=== PATIENT | female | born 1985 | race Caucasian/White ===

== ENCOUNTER 2017-09-24 17:48 | Emergency (ER) | payer OTHER ==
[~2017-09-24] VITALS: Ht 177.8 cm; Wt 86.2 kg
--- NOTE | 2017-09-24 18:35 | ULTRASOUND REPORT ---
EXAMINATION: US TRIPLEX LOWER EXTREMITY, RIGHT CLINICAL INFORMATION: Right lower extremity pain. COMPARISON: None TECHNIQUE: Color-flow triplex imaging with spectral analysis and compression Doppler were performed on the lower extremity. FINDINGS: Respiratory variation, normal compression and augmented flow are noted throughout the lower extremity. The visualized common femoral vein, superficial femoral vein, profunda femoral vein, popliteal vein and midcalf peroneal and posterior tibial venous segments show no evidence of deep venous thrombosis. There is no Mcdowell's cyst. IMPRESSION: Normal triplex scan without evidence of deep venous thrombosis involving the lower extremity.
[2017-09-24 18:50] LABS: ABSOLUTE BASOPHIL COUNT 0 /CUMM (0.0-0.2); ABSOLUTE EOSINOPHIL COUNT 0.1 /CUMM (0.0-0.7); ABSOLUTE GRANULOCYTE CT 7.7 /CUMM (1.4-6.5); ABSOLUTE LYMPH COUNT 1.6 /CUMM (1.2-3.4); ABSOLUTE MONOCYTE COUNT 0.5 /CUMM (0.10-0.60); BASOPHIL % 0.3 % (0.0-2.0); EOSINOPHIL % 0.8 % (0-5); GRANULOCYTE % 77.7 % (42.2-75.2); HEMATOCRIT 32.3 % (37-47); MEAN CORPUSCULAR HGB 32.7 PG (27.0-31.0); MEAN CORPUSCULAR HGB CONC 34.2 G/DL (33.0-37.0); MEAN CORPUSCULAR VOLUME 95.7 FL (81.0-99.0); MEAN PLATELET VOLUME 7.4 FL (7.4-10.4); PLATELET COUNT 289 /CUMM (130-400); RBC DISTRIBUTION WIDTH 14.1 % (11.5-14.5); RED BLOOD CELL CT 3.38 /CUMM (4.20-5.40); WHITE BLOOD CELL COUNT 9.9 /CUMM (4.8-10.8)
[2017-09-24 18:58] LABS: PT 11.1 SEC (9.4-12.5); PTT 28 SEC (25-37)
[2017-09-24 19:55] VITALS: BP 120/72
--- NOTE | 2017-09-24 20:21 | ED GENERAL ADULT ---
History of Present Illness General Chief Complaint: General Adult Stated Complaint: R MID BACK PAIN, R CALF CRAMPING, COUGH. 20 WKS P Source: patient Exam Limitations: no limitations Vital Signs & Intake/Output Vital Signs & Intake/Output Vital Signs Date Time Temp Pulse Resp B/P B/P Pulse O2 O2 Flow FiO2 Mean Ox Delivery Rate 09/24 1954 98.6 77 17 120/72 100 Room Air 09/24 1753 98.6 102 18 155/71 99 Room Air Allergies Coded Allergies: No Known Allergies (09/24/17) Triage Note: RECEIVED 32 YO FEMALE 20 WEEKS 4 DAYS WITH TWINS. PT C/O R MID BACK PAIN RADIATING TO R LATERAL RIBCAGE AREA X 6 DAYS, CRAMPING PAIN TO RIGHT CALF AREA X 2 DAYS AND COUGHING. SPOKE TO SOFIE COUGHLIN IN CBC, PT TO BE SEEN IN THE ED Triage Nurses Notes Reviewed? yes Onset: Abrupt No Modifying Factors: none : Yes Patient currently breastfeeds: No HPI: 32-year-old female 20 weeks with twins comes into the emergency room for further evaluation of pain to her right calf. She also reports that she had some right upper back pain. Symptoms began on for past couple days. She denies any chest pain or shortness of breath. She's had some acid reflux. She denies any fever chills or vomiting. Denies any urinary symptoms. Nothing seems to make the symptoms better or worse. She reports that she just had an ultrasound recently. She feels the baby moving. (Manjit Oliva) Past History Travel History Traveled to [place] past 21 day No Medical History Any Pertinent Medical History? see below for history Neurological: NONE EENT: NONE Cardiovascular: NONE Respiratory: NONE Gastrointestinal: NONE Hepatic: NONE Renal: NONE Musculoskeletal: NONE Psychiatric: NONE Endocrine: NONE Cancer(s): NONE Surgical History Surgical History: non-contributory Psychosocial History What is your primary language Israeli Tobacco Use: Never used Family History Hx Contributory? No (Manjit Oliva) Review of Systems Review of Systems Constitutional: Reports: no symptoms. EENTM: Reports: no symptoms. Respiratory: Reports: no symptoms. Cardiovascular: Reports: no symptoms. GI: Reports: no symptoms. Genitourinary: Reports: no symptoms. Musculoskeletal: Reports: see HPI. Skin: Reports: no symptoms. Neurological/Psychological: Reports: no symptoms. Hematologic/Endocrine: Reports: no symptoms. Immunologic/Allergic: Reports: no symptoms. All Other Systems: Reviewed and Negative (Manjit Oliva) Physical Exam Physical Exam General Appearance: well developed/nourished, no apparent distress, alert, awake Head: atraumatic, normal appearance Eyes: Bilateral: normal appearance, EOMI. Ears, Nose, Throat: normal ENT inspection, hearing grossly normal Neck: normal inspection Respiratory: normal breath sounds, no respiratory distress Cardiovascular: regular rate/rhythm Gastrointestinal: soft, distention Back: normal inspection Extremities: normal inspection, normal range of motion, no edema Neurologic/Psych: awake, alert, oriented x 3 Skin: intact, normal color Core Measures ACS in differential dx? No CVA/TIA Diagnosis: No Sepsis Present: No Sepsis Focused Exam Completed? No (Manjit Oliva) Progress Differential Diagnoses I considered the following diagnoses in my evaluation of the patient: Muscle strain, electrolyte imbalance,, DVT, preeclampsia, Plan of Care: Orders Procedure Date/time Status URINALYSIS 09/24 1753 Complete PARTIAL THROMBOPLASTIN TIME 09/24 1753 Complete PROTHROMBIN TIME 09/24 1753 Complete HUMAN BETA HCG TITRE 09/24 1753 Complete COMPREHENSIVE METABOLIC PANEL 09/24 1753 Complete CBC WITHOUT DIFFERENTIAL 09/24 1753 Complete Laboratory Tests 09/24/171944: Urine Color YEL, Urine Clarity HAZY H, Urine pH 7.0, Ur Specific [place] 1.010, Urine Protein NEG, Urine Ketones NEG, Urine Nitrite NEG, Urine Bilirubin NEG, Urine Urobilinogen 0.2, Ur Leukocyte Esterase TRACE H, Ur Microscopic SEDIMENT EXAMINED, Urine RBC RARE, Urine WBC 3-5 H, Ur Epithelial Cells FEW, Urine Bacteria MANY H, Urine Hemoglobin NEG, Urine Glucose NEG 09/24/17 1840: Anion Gap 11, Estimated GFR > 60, BUN/Creatinine Ratio 12.0, Glucose 85, Calcium 8.9, Total Bilirubin 0.4, AST 15, ALT 15, Alkaline Phosphatase 47, Total Protein 6.6, Albumin 3.6, Globulin 3.0, Albumin/Globulin Ratio 1.2, Beta HCG, Quant 48102.0, PT 11.1, INR 1.02, APTT 28, CBC w Diff NO MAN DIFF REQ, RBC 3.38 L, MCV 95.7, MCH 32.7 H, MCHC 34.2, RDW 14.1, MPV 7.4, Gran % 77.7 H, Lymphocytes % 16.4 L, Monocytes % 4.8, Eosinophils % 0.8, Basophils % 0.3, Absolute Granulocytes 7.7 H, Absolute Lymphocytes 1.6, Absolute Monocytes 0.5, Absolute Eosinophils 0.1, Absolute Basophils 0 Diagnostic Imaging: Viewed by Me: Ultrasound. Discussed w/RAD: Ultrasound. Radiology Impression: PATIENT: RUSH ZUNIGA PRESENT AGE: 32 PATIENT ACCOUNT NO: [id number] : 87 LOCATION: [facility] ORDERING PHYSICIAN: Jessica BROOKS SERVICE DATE: 09/24/17 EXAM TYPE: US - US-UNILATERAL VENOUS DOPPLER EXAMINATION: US TRIPLEX LOWER EXTREMITY, RIGHT CLINICAL INFORMATION: Right lower extremity pain. COMPARISON: None TECHNIQUE: Color-flow triplex imaging with spectral analysis and compression Doppler were performed on the lower extremity. FINDINGS: Respiratory variation, normal compression and augmented flow are noted throughout the lower extremity. The visualized common femoral vein, superficial femoral vein, profunda femoral vein, popliteal vein and midcalf peroneal and posterior tibial venous segments show no evidence of deep venous thrombosis. There is no Mcdowell's cyst. IMPRESSION: Normal triplex scan without evidence of deep venous thrombosis involving the lower extremity. DICTATED BY: Estuardo Vance MD DATE/TIME DICTATED:09/24/171831 SUPERINTENDENT SERVICE:ZOHAIB DATE/TIME TRANSCRIBED:09/24/171831 CONFIDENTIAL, DO NOT COPY WITHOUT APPROPRIATE AUTHORIZATION. <Electronically signed in Other Vendor System> SIGNED BY: Estuardo Vance MD 09/24/171834 Initial ED EKG: none Comments: 09/24/2017 9:03:09 PM Patient clinically looks well. Patient is in no apparent distress. Patient is nontoxic-appearing. No suspicion for pulmonary embolism at this time. Spoke with the on-call WING MAILER MACHINE OPERATOR doctor vadim. They agree with plan of care and will follow-up with her in the office. She has no complaints of abdominal pain. She has no leakage of fluid or vaginal bleeding. case discussed with dr urbano. (Manjit Oliva) Departure Departure Disposition: HOME OR SELF CARE Condition: Stable Clinical Impression Primary Impression: Right calf pain Secondary Impressions: Back pain Referrals: Young HEDRICK,Chet Anders (PCP/Family) Additional Instructions: Follow-up with your WING MAILER MACHINE OPERATOR doctor. Return immediately if any concerns worsening symptoms. Please go over all results of today's visit with your primary care doctor. Contact your primary care doctor to let them know you were here in the emergency room. There may be nonspecific findings which may not be related to your visit today here in the emergency room but may require further evaluation and chronic monitoring by your primary care doctor. If you had a laceration today the chance of foreign body always remains. You should follow-up with your primary care doctor for recheck in 3-5 days for a wound check. If you had an x-ray done there is a chance that a fracture could have been missed on initial read and you should follow-up with your primary care doctor for repeat x-rays if symptoms persist. If your blood pressure was elevated here in the emergency room please have rechecked by [facility] primary care doctor within the next 48. If you were prescribed a narcotic here in the emergency room or any type of controlled substances you're not allowed to drive while taking this medication or operate any type of heavy machinery. Narcotics can make you feel lightheaded dizziness nausea and can cause constipation. You may need to pickling solution maker a stool softener. Thank you for choosing [facility] emergency room. Please return to the emergency room immediately if you have any other concerns worsening of symptoms. Departure Forms: Customer Survey General Discharge Information (Manjit Oliva) PA/ELECTRICIAN Co-Sign Statement Statement: ED Attending supervision documentation- I saw and evaluated the patient. I have also reviewed all the pertinent lab results and diagnostic results. I agree with the findings and the plan of care as documented in the PA's/ELECTRICIAN's documentation. x I have reviewed the ED Record and agree with the PA's/ELECTRICIAN's documentation. [] Additions or exceptions (if any) to the PAs/ELECTRICIAN's note and plan are summarized below: [] (Bozena HEDRICK,Benjie) Critical Care Note Critical Care Note Critical Care Time: non-applicable (Manjit Oliva)
== END 2017-09-24 21:09 ==
LOC: ERH 17:48
PROVIDERS: Physician Assistant
DX: O26.92 Pregnancy related conditions, unspecified, second trimester (principal); M79.661 Pain in right lower leg; M54.9 Dorsalgia, unspecified; Z3A.20 20 weeks gestation of pregnancy
CPT/HCPCS: 81001